=== PATIENT | male | born 1960 | race Asian ===

== ENCOUNTER 2019-05-10 15:51 | Inpatient (IN) | payer BC ==
[~2019-05-10] VITALS: Ht 162.6 cm; Wt 54.8 kg
[2019-05-10] VITALS (13 sets, daily range): BP systolic 101–132; BP diastolic 65–89; PULSE 93–103; RESP 21–30; Ht 162.6 cm; Wt 54.8 kg
[~2019-05-10 15:51] MED LIST: DOXY100T21 PO; LANT3I SC; LEVO750T8 PO; NOVO3I SC; [UNRECOGNIZED DRUG - CODE] MC; [UNRECOGNIZED DRUG - REMARK]
[2019-05-10] MEDS ORDERED: SODIUM CHLORIDE 0.9% 1L BAG IV* STA (16:29)
[2019-05-10] MEDS ORDERED: IBUPROFEN 600 MG TAB PO ONE (16:30)
[2019-05-10] MEDS ORDERED: CEFTRIAXONE 1 GM/50 ML (PMX) 50 ML IVPB ONE (16:30)
[2019-05-10] MEDS ORDERED: ONDANSETRON 4 MG INJ IV STA (16:32)
[2019-05-10] MEDS ORDERED: DEXTROSE 10%/0.45% NACL 1,000 ML IV SCH (17:56)
[2019-05-10] MEDS ORDERED: D10/0.45% NACL + KCL 40 MEQ 1,000 ML IV SCH (17:56)
[2019-05-10] MEDS ORDERED: SOD CHLORIDE 0.9% 1,000 ML IV SCH (17:56)
[2019-05-10] MEDS ORDERED: NS + KCL 40 MEQ 1,000 ML IV SCH (17:56)
[2019-05-10] MEDS ORDERED: D10/0.45% NACL + KCL 30 MEQ 1,000 ML IV SCH (17:56)
[2019-05-10] MEDS ORDERED: AZITHROMYCIN 500MG/NS (PMX) 250 ML IVPB ONE (18:00)
[2019-05-10] MEDS ORDERED: INSULIN REGULAR, HUMAN 100 UNIT in SOD CHLORIDE 0.9% 100 ML IV SCH ×2 (18:00)
[2019-05-10] MEDS ORDERED: LACTATED RINGER S IV ONE (18:00)
[2019-05-10] MEDS ORDERED: DEXTROSE 50% 50 ML SYRINGE IV PRN ×4 (18:00→22:30)
[2019-05-10] MEDS: NS + KCL 30 MEQ 1,000 ML IV SCH (19:15)
[2019-05-10] MEDS ORDERED: GLUCOSE GEL 15 GRAM TUBE BUCCAL PRN (22:30)
[2019-05-10] MEDS ORDERED: INSULIN GLARGINE [LANTus] (100 UNITS/ML) SYG SC ONE (22:30)
[2019-05-10] MEDS ORDERED: GLUCOSE GEL 15 GRAM TUBE PO PRN ×2 (22:30)
[2019-05-10] MEDS ORDERED: GLUCAGON 1 MG INJ IM PRN (22:30)
[2019-05-11] VITALS (25 sets, daily range): BP systolic 114–145; BP diastolic 65–91; PULSE 94–120; RESP 22–37
[2019-05-11] MEDS: NS + KCL 30 MEQ 1,000 ML IV SCH (02:09)
[2019-05-11] MEDS: ACETAMINOPHEN 325 MG TAB PO PRN ×2 (02:50→08:59)
[2019-05-11] MEDS: SOD CHLORIDE 0.9% 1,000 ML IV SCH ×2 (04:56→13:11)
[2019-05-11] MEDS ORDERED: ACETAMINOPHEN 650MG/20.3ML CUP PO PRN (05:00)
[2019-05-11] MEDS ORDERED: INSULIN GLARGINE [LANTus] (100 UNITS/ML) SYG SC SCH (08:00)
[2019-05-11] MEDS: FAMOTIDINE 20 MG TAB PO SCH ×2 (08:59→20:24)
[2019-05-11] MEDS ORDERED: LEVOFLOXACIN 500MG/D5W (PMX) 100 ML IVPB SCH (09:00)
[2019-05-11] MEDS: INSULIN ASPART [NOVOLOG] 3 ML PEN SC SCH ×6 (09:07→20:24)
[2019-05-11] MEDS ORDERED: POTASSIUM PHOSPHATE 40 MEQ in SOD CHLORIDE 0.9% 250 ML IVPB ONE (11:30)
[2019-05-11] MEDS: CEFEPIME 2GM/50 ML (PMX) 50 ML IVPB SCH ×2 (13:10→20:24)
[2019-05-11] MEDS: SOD FERRIC GLUC COMPLX 125 MG in SOD CHLORIDE 0.9% 100 ML IVPB SCH (13:10)
[2019-05-11] MEDS ORDERED: ONDANSETRON 4 MG INJ IV PRN (14:30)
[2019-05-11] MEDS: morphine 2 MG INJ IV PRN ×2 (15:30→21:47)
[2019-05-11] MEDS: INSULIN GLARGINE [LANTus] (100 UNITS/ML) SYG SC SCH (20:26)
[2019-05-12] VITALS (24 sets, daily range): BP systolic 107–157; BP diastolic 61–104; PULSE 93–135; RESP 20–33
[2019-05-12] MEDS: ACCU-CHEK XX SCH (01:45)
[2019-05-12] MEDS: ACETAMINOPHEN 325 MG TAB PO PRN ×2 (03:13→15:34)
[2019-05-12] MEDS: morphine 2 MG INJ IV PRN (03:19)
[2019-05-12] MEDS: SOD CHLORIDE 0.9% 1,000 ML IV SCH ×3 (03:43→20:24)
[2019-05-12] MEDS: INSULIN ASPART [NOVOLOG] 3 ML PEN SC SCH ×7 (07:35→20:21)
[2019-05-12] MEDS: FAMOTIDINE 20 MG TAB PO SCH ×2 (08:41→20:18)
[2019-05-12] MEDS: CEFEPIME 2GM/50 ML (PMX) 50 ML IVPB SCH ×2 (09:57→20:18)
[2019-05-12] MEDS ORDERED: POTASSIUM PHOSPHATE 40 MEQ in SOD CHLORIDE 0.9% 250 ML IVPB ONE (13:30)
[2019-05-12] MEDS: SOD FERRIC GLUC COMPLX 125 MG in SOD CHLORIDE 0.9% 100 ML IVPB SCH (15:27)
[2019-05-12] MEDS: INSULIN GLARGINE [LANTus] (100 UNITS/ML) SYG SC SCH (20:19)
[2019-05-13] VITALS (15 sets, daily range): BP systolic 119–153; BP diastolic 65–94; PULSE 89–112; RESP 18–30
[2019-05-13] MEDS: ACCU-CHEK XX SCH (02:16)
[2019-05-13] MEDS: morphine 2 MG INJ IV PRN (02:17)
[2019-05-13] MEDS: SOD CHLORIDE 0.9% 1,000 ML IV SCH (02:20)
[2019-05-13] MEDS ORDERED: POTASSIUM CHLORIDE 100 ML IVPB ONE (06:30)
[2019-05-13] MEDS: INSULIN ASPART [NOVOLOG] 3 ML PEN SC SCH ×7 (07:35→20:53)
[2019-05-13] MEDS: FAMOTIDINE 20 MG TAB PO SCH ×2 (08:37→20:51)
[2019-05-13] MEDS: ACETAMINOPHEN 325 MG TAB PO PRN ×2 (08:37→17:50)
[2019-05-13] MEDS: CEFEPIME 2GM/50 ML (PMX) 50 ML IVPB SCH ×2 (08:37→22:13)
[2019-05-13] MEDS ORDERED: POTASSIUM PHOSPHATE 40 MEQ in SOD CHLORIDE 0.9% 250 ML IVPB ONE (12:00)
[2019-05-13] MEDS: SOD FERRIC GLUC COMPLX 125 MG in SOD CHLORIDE 0.9% 100 ML IVPB SCH (12:24)
[2019-05-13] MEDS: SOD CHLORIDE 0.45% 1,000 ML IV SCH (14:48)
[2019-05-13] MEDS: INSULIN GLARGINE [LANTus] (100 UNITS/ML) SYG SC SCH (20:54)
[2019-05-14] VITALS (7 sets, daily range): BP systolic 116–155; BP diastolic 60–82; PULSE 76–109; RESP 18–34
[2019-05-14] MEDS: ACETAMINOPHEN 325 MG TAB PO PRN ×2 (01:57→13:55)
[2019-05-14] MEDS: ACCU-CHEK XX SCH (02:00)
[2019-05-14] MEDS: SOD CHLORIDE 0.45% 1,000 ML IV SCH ×3 (04:23→19:26)
[2019-05-14] MEDS: INSULIN ASPART [NOVOLOG] 3 ML PEN SC SCH ×7 (08:00→21:00)
[2019-05-14] MEDS: FAMOTIDINE 20 MG TAB PO SCH ×2 (08:30→20:58)
[2019-05-14] MEDS: CEFEPIME 2GM/50 ML (PMX) 50 ML IVPB SCH ×3 (09:00→20:57)
[2019-05-14] MEDS ORDERED: POTASSIUM CHLORIDE (SR) 20 MEQ TAB PO STA (14:57)
[2019-05-14] MEDS ORDERED: IBUPROFEN 600 MG TAB PO PRN (15:00)
[2019-05-14] MEDS: INSULIN GLARGINE [LANTus] (100 UNITS/ML) SYG SC SCH (21:03)
[2019-05-15 01:59] VITALS: BP 128/68; PULSE 94; RESP 21
[2019-05-15] MEDS: ACCU-CHEK XX SCH (02:00)
[2019-05-15] MEDS: ACETAMINOPHEN 325 MG TAB PO PRN ×2 (05:13→14:39)
[2019-05-15 08:07] VITALS: BP 145/74; PULSE 89; RESP 20
[2019-05-15] MEDS: FAMOTIDINE 20 MG TAB PO SCH ×2 (08:25→21:33)
[2019-05-15] MEDS: CEFEPIME 2GM/50 ML (PMX) 50 ML IVPB SCH (08:26)
[2019-05-15] MEDS: INSULIN ASPART [NOVOLOG] 3 ML PEN SC SCH ×7 (08:28→21:32)
[2019-05-15] MEDS: SOD CHLORIDE 0.45% 1,000 ML IV SCH (10:49)
[2019-05-15 14:19] VITALS: BP 139/70; PULSE 104; RESP 20
[2019-05-15] MEDS ORDERED: POTASSIUM CHLORIDE (SR) 20 MEQ TAB PO STA (17:24)
[2019-05-15 20:10] VITALS: BP 133/72; PULSE 94; RESP 18
[2019-05-15] MEDS: INSULIN GLARGINE [LANTus] (100 UNITS/ML) SYG SC SCH (21:31)
[2019-05-15] MEDS: DOCUSATE SODIUM 100 MG CAP PO SCH (21:33)
[2019-05-15] MEDS: LEVOFLOXACIN 750MG/D5W (PMX) 150 ML IVPB SCH (21:33)
[2019-05-16] MEDS: ACCU-CHEK XX SCH (02:00)
[2019-05-16] MEDS: SOD CHLORIDE 0.45% 1,000 ML IV SCH ×4 (02:20→23:00)
[2019-05-16 02:24] VITALS: BP 123/68; PULSE 103; RESP 20
[2019-05-16] MEDS: ACETAMINOPHEN 325 MG TAB PO PRN (02:42)
[2019-05-16] MEDS: FAMOTIDINE 20 MG TAB PO SCH ×2 (08:01→20:14)
[2019-05-16] MEDS: DOCUSATE SODIUM 100 MG CAP PO SCH ×2 (08:01→20:08)
[2019-05-16] MEDS: INSULIN ASPART [NOVOLOG] 3 ML PEN SC SCH ×7 (08:06→20:14)
[2019-05-16 08:10] VITALS: BP 119/67; PULSE 89; RESP 18
[2019-05-16] MEDS: GUAIFENESIN/DM (SR) TAB PO PRN ×2 (14:52→20:08)
[2019-05-16 15:05] VITALS: BP 134/70; PULSE 90; RESP 16
[2019-05-16 20:00] VITALS: BP 115/58; PULSE 109; RESP 18
[2019-05-16] MEDS: LEVOFLOXACIN 750MG/D5W (PMX) 150 ML IVPB SCH (20:09)
[2019-05-16] MEDS: SENNA TAB PO SCH (20:09)
[2019-05-16] MEDS: INSULIN GLARGINE [LANTus] (100 UNITS/ML) SYG SC SCH (20:13)
[2019-05-17 02:00] VITALS: BP 109/65; PULSE 81; RESP 18
[2019-05-17] MEDS: ACCU-CHEK XX SCH (02:00)
[2019-05-17] MEDS: ACETAMINOPHEN 325 MG TAB PO PRN ×2 (05:40→18:06)
[2019-05-17] MEDS: SOD CHLORIDE 0.45% 1,000 ML IV SCH ×2 (05:40→22:11)
[2019-05-17] MEDS: GUAIFENESIN/DM (SR) TAB PO PRN ×3 (05:40→21:02)
[2019-05-17] MEDS: INSULIN ASPART [NOVOLOG] 3 ML PEN SC SCH ×7 (08:00→21:13)
[2019-05-17 08:02] VITALS: BP 108/64; PULSE 79; RESP 20
[2019-05-17] MEDS: DOCUSATE SODIUM 100 MG CAP PO SCH ×2 (08:24→21:02)
[2019-05-17] MEDS: FAMOTIDINE 20 MG TAB PO SCH ×2 (08:24→21:02)
[2019-05-17] MEDS: SENNA TAB PO SCH ×2 (08:24→21:02)
[2019-05-17 16:42] VITALS: BP 130/66; PULSE 101; RESP 20
[2019-05-17 20:26] VITALS: BP_SYST 105; BP_SYST 131; BP_DIAS 57; BP_DIAS 79; PULSE 103; PULSE 67; RESP 18
[2019-05-17] MEDS: LEVOFLOXACIN 750MG/D5W (PMX) 150 ML IVPB SCH (20:27)
[2019-05-17] MEDS: INSULIN GLARGINE [LANTus] (100 UNITS/ML) SYG SC SCH (21:14)
[2019-05-17 22:48] VITALS: PULSE 94
[2019-05-18] MEDS: ACCU-CHEK XX SCH (01:11)
[2019-05-18 01:44] VITALS: BP 114/94; PULSE 91; RESP 16
[2019-05-18] MEDS: GUAIFENESIN/DM (SR) TAB PO PRN ×3 (06:46→20:11)
[2019-05-18 07:55] VITALS: BP 126/66; PULSE 92; RESP 18
[2019-05-18] MEDS: INSULIN ASPART [NOVOLOG] 3 ML PEN SC SCH ×7 (08:27→20:12)
[2019-05-18] MEDS: SENNA TAB PO SCH ×2 (08:29→20:11)
[2019-05-18] MEDS: DOCUSATE SODIUM 100 MG CAP PO SCH ×2 (08:29→20:12)
[2019-05-18] MEDS: FAMOTIDINE 20 MG TAB PO SCH ×2 (08:29→20:12)
[2019-05-18] MEDS: CEFEPIME 1GM/50 ML (PMX) 50 ML IVPB SCH ×2 (11:50→20:11)
[2019-05-18] MEDS: SOD CHLORIDE 0.45% 1,000 ML IV SCH (11:54)
[2019-05-18] MEDS ORDERED: VANCOMYCIN IV PER PHARMACY XX SCH (12:00)
[2019-05-18] MEDS ORDERED: VANCOMYCIN 1 GM 250 ML IVPB SCH (12:00)
[2019-05-18 14:38] VITALS: BP 123/57; PULSE 96; RESP 20
[2019-05-18] MEDS: ACETAMINOPHEN 325 MG TAB PO PRN (20:11)
[2019-05-18] MEDS: INSULIN GLARGINE [LANTus] (100 UNITS/ML) SYG SC SCH (20:22)
[2019-05-18 20:48] VITALS: BP 118/65; PULSE 96; RESP 19
[2019-05-19] MEDS: VANCOMYCIN 750 MG (PMX) 250 ML IVPB SCH ×3 (00:32→23:49)
[2019-05-19] MEDS: ACCU-CHEK XX SCH (02:00)
[2019-05-19 02:11] VITALS: BP 121/74; PULSE 88; RESP 18
[2019-05-19] MEDS ORDERED: HYDROCODONE/APAP (5/325) TAB PO PRN (03:30)
[2019-05-19] MEDS ORDERED: ONDANSETRON 4 MG INJ IV PRN (03:30)
[2019-05-19] MEDS ORDERED: ACETAMINOPHEN 325 MG TAB PO PRN (03:30)
[2019-05-19] MEDS ORDERED: SOD CHLORIDE 0.9% 1,000 ML IV SCH (03:30)
[2019-05-19] MEDS ORDERED: KETOROLAC 15 MG INJ IV PRN (03:30)
[2019-05-19] MEDS ORDERED: VANCOMYCIN IV PER PHARMACY XX SCH (03:30)
[2019-05-19] MEDS: GUAIFENESIN/DM (SR) TAB PO PRN (05:01)
[2019-05-19] MEDS: ACETAMINOPHEN 325 MG TAB PO PRN ×2 (05:03→11:30)
[2019-05-19] MEDS ORDERED: PANTOPRAZOLE (EC) 40 MG TAB PO SCH (06:00)
[2019-05-19 08:00] VITALS: BP 112/64; PULSE 91; RESP 18
[2019-05-19] MEDS: INSULIN ASPART [NOVOLOG] 3 ML PEN SC SCH ×7 (08:20→21:00)
[2019-05-19] MEDS ORDERED: METOPROLOL 25 MG TAB PO SCH (09:00)
[2019-05-19] MEDS ORDERED: CEFEPIME 1GM/50 ML (PMX) 50 ML IVPB SCH (09:00)
[2019-05-19] MEDS: SENNA TAB PO SCH ×2 (09:18→21:06)
[2019-05-19] MEDS: DOCUSATE SODIUM 100 MG CAP PO SCH ×2 (09:18→21:06)
[2019-05-19] MEDS: CEFEPIME 1GM/50 ML (PMX) 50 ML IVPB SCH ×2 (09:18→21:06)
[2019-05-19] MEDS: FAMOTIDINE 20 MG TAB PO SCH ×2 (09:18→21:06)
[2019-05-19 14:45] VITALS: PULSE 94; RESP 25
[2019-05-19 14:57] VITALS: BP 108/66; PULSE 98; RESP 25
[2019-05-19 20:05] VITALS: BP 111/63; PULSE 96; RESP 16
[2019-05-19] MEDS: INSULIN GLARGINE [LANTus] (100 UNITS/ML) SYG SC SCH (21:09)
[2019-05-20 02:00] VITALS: BP 117/65; PULSE 104; RESP 18
[2019-05-20] MEDS: ACCU-CHEK XX SCH (02:00)
[2019-05-20] MEDS: GUAIFENESIN/DM (SR) TAB PO PRN (05:58)
[2019-05-20] MEDS: INSULIN ASPART [NOVOLOG] 3 ML PEN SC SCH ×4 (08:00→13:06)
[2019-05-20 08:41] VITALS: BP 114/66; PULSE 89; RESP 17
[2019-05-20] MEDS: FAMOTIDINE 20 MG TAB PO SCH (08:41)
[2019-05-20] MEDS: SENNA TAB PO SCH (08:41)
[2019-05-20] MEDS: DOCUSATE SODIUM 100 MG CAP PO SCH (08:41)
[2019-05-20] MEDS: ACETAMINOPHEN 325 MG TAB PO PRN (08:49)
[2019-05-20] MEDS: CEFEPIME 1GM/50 ML (PMX) 50 ML IVPB SCH (10:27)
[2019-05-20] MEDS ORDERED: VANCOMYCIN 1 GM 250 ML IVPB SCH (12:00)
== END 2019-05-20 14:45 | disposition home or self-care (01) | DRG 871 ==
LOC: E/R 15:51 → ICU 18:10 → 2NE 05-13 15:35
PROVIDERS: ADMIT Internal Medicine; ATTEND Internal Medicine
DX: A41.9 Sepsis, unspecified organism (principal); E11.10 Type 2 diabetes mellitus with ketoacidosis without coma; J18.9 Pneumonia, unspecified organism; N17.9 Acute kidney failure, unspecified; N39.0 Urinary tract infection, site not specified; E86.0 Dehydration; D50.9 Iron deficiency anemia, unspecified; I10 Essential (primary) hypertension; Z79.4 Long term (current) use of insulin; B96.1 Klebsiella pneumoniae [K. pneumoniae] as the cause of diseases classified elsewhere
CPT/HCPCS: 36415; 36600; 71045; 71250; 74176; 80048; 80053; 80202; 81001; 82270; 82728; 82803; 82962; 83036; 83540; 83605; 83690; 83735; 84100; 84145; 84484; 85025; 85610; 85730; 87081; 87086; 93005; 96365; 96375; 97116; 97162; 97530; J0456; J0692; J0696; J1815; J1956; J2270; J2405; J2916; J3370; J3480; J7030; J7050; J7120